=== PATIENT | male | born 1945 | race African-American/Black ===

== ENCOUNTER 2019-01-29 09:09 | Emergency (ER) | payer BC, MEDICARE, OTHER ==
[~2019-01-29] VITALS: Ht 175.3 cm; Wt 77.0 kg
[2019-01-29] MEDS ORDERED: LIDOCAINE HCL/PF 1% 10 MG/ML 5ML VIAL IJ ONE (09:30)
[2019-01-29] MEDS ORDERED: MORPHINE SULFATE 4 MG/ML CPJ (NOT FOR IM USE) IV ONE (09:30)
[2019-01-29] MEDS ORDERED: LIDOCAINE HCL/PF 1% 10 MG/ML 5ML VIAL ONE (10:31)
[2019-01-29 11:20] VITALS: BP 132/76
== END 2019-01-29 11:20 | disposition home or self-care (01) ==
LOC: ER 09:09
DX: S01.01XA Laceration without foreign body of scalp, initial encounter (principal); S61.210A Laceration without foreign body of right index finger without damage to nail, initial encounter; Y93.89 Activity, other specified; W27.8XXA Contact with other nonpowered hand tool, initial encounter; Y92.89 Other specified places as the place of occurrence of the external cause
CPT/HCPCS: 12002; 70450; 72125; 99284; J3490; J2270

== ENCOUNTER 2024-08-03 14:35 | Emergency (ER) | payer BC, MEDICARE ==
[~2024-08-03] VITALS: Ht 170.2 cm; Wt 75.0 kg
[2024-08-03 14:41] VITALS: O2SAT 100
[2024-08-03 14:45] VITALS: BP 147/81; PULSE 74; RESP 16; TEMP 36.8; O2SAT 98
[2024-08-03] MEDS: IPRATROPIUM/ALBUTEROL 0.5-3(2.5)MG/3ML NEB HHN ONE (15:17)
[2024-08-03 15:25] LABS: BASOPHILS % 0.9 % (0.0-2.0); EOSINOPHILS % 4.1 % (0.0-5.0); HEMATOCRIT. 39.4 % (42.0-52.0); HEMOGLOBIN. 12.6 g/dL (14.0-18.0); LYMPHOCYTES % 22.5 % (20.0-50.0); MEAN CORPUSCULAR HEMOGLOBIN 27.2 pg (28.0-32.0); MEAN CORPUSCULAR HGB CONC 32.1 g/dL (31.0-37.0); MEAN CORPUSCULAR VOLUME 84.9 fL (80.0-94.0); MEAN PLATELET VOLUME 7.9 fl (7.4-10.4); MONOCYTES % 10.1 % (2.0-8.0); NEUTROPHILS % 62.4 % (40.0-76.0); PLATELET 140 x1000/uL (130-400); RED BLOOD CELL COUNT 4.64 mill/uL (4.7-6.1); RED CELL DISTRIBUTION WIDTH 14.1 % (11.6-14.6); WHITE BLOOD COUNT 5.5 x1000/uL (4.5-11.0)
[2024-08-03 15:32] LABS: PROTHROMBIN TIME 10.8 sec (9.6-11.0)
[2024-08-03 15:33] LABS: POTASSIUM 4.1 mEq/L (3.5-5.1)
[2024-08-03 15:34] LABS: CALCIUM 8.6 mg/dL (8.7-10.4)
[2024-08-03 15:39] LABS: CREATININE 1.6 mg/dL (0.6-1.3)
== END 2024-08-03 16:25 | disposition home or self-care (01) ==
LOC: ER 14:35
DX: M79.89 Other specified soft tissue disorders (principal); N28.9 Disorder of kidney and ureter, unspecified; J44.89 Other specified chronic obstructive pulmonary disease; I48.91 Unspecified atrial fibrillation; Z88.2 Allergy status to sulfonamides; Z88.1 Allergy status to other antibiotic agents; Z98.890 Other specified postprocedural states
CPT/HCPCS: 36415; 71045; 80048; 85025; 93971; 99284